=== PATIENT | female | born 1960 | race Caucasian/White ===

== ENCOUNTER 2016-08-30 15:53 | Outpatient (CLI) | payer OTHER ==
[2016-08-31] MEDS ORDERED: CYMBALTA30 MG PO (15:42)
[2016-08-31] MEDS ORDERED: OXYBUTYNIN CHLO15 MG PO (15:43)
[2016-08-31] MEDS ORDERED: LITHIUM CARBON600 MG PO (15:43)
[2016-08-31] MEDS ORDERED: PROTONIX40 MG PO (15:43)
[2016-08-31] MEDS ORDERED: LISINOPRIL10 MG PO (15:44)
[2016-08-31] MEDS ORDERED: LAMICTAL25 M1 PO (15:45)
[2016-08-31] MEDS ORDERED: ESTRACE1 MG PO (15:46)
[2016-08-31] MEDS ORDERED: ASPIRIN ADULT L81 MG PO (15:46)
== END 2016-08-30 23:00 ==
LOC: LAB SRH 15:53
DX: Z01.818 Encounter for other preprocedural examination (principal); Z01.812 Encounter for preprocedural laboratory examination
CPT/HCPCS: 90001; 90004; 90074; 90100; 90155; 91004; 94060; 95059; 95150

== ENCOUNTER 2016-09-05 10:21 | Inpatient (IN) | payer OTHER ==
--- NOTE | 2016-08-30 19:12 | HISTORY AND PHYSICAL ---
ADMITTED: 09/05/2016 CHIEF COMPLAINT: 1. Left knee pain HISTORY OF PRESENT ILLNESS: The patient has had chronic left knee pain which has not been resolved with conservative treatment and she is having clicking, catching, giving way of the knee, which has gotten progressively more severe and more painful as time has gone on, and she has not gotten better with any conservative treatment and will be admitted for knee replacement surgery then next week. She was informed today where the incision would be, how we go about doing the procedure, how the pieces are glued in place, the risk of blood clots, of infection with possible need for further surgery including removal of the prosthesis and further replacement of the knee at a later time, anesthesia complications, problems with stiffness and pain and then difficulty with healing , problems with wound healing all were explained to her today. She understands and accepts. MEDICAL/SURGICAL HISTORY: Past medical history is positive in that she suffers from hypertension, and she also has some problems with depression and she has bipolar disorder. She has had a previous TIA and also has had a recorded previous CVA. She suffers from insomnia and she has some GERD. She does have a history of prior surgery for an aneurysm as well as a right knee arthroscopy and meniscal resection and total abdominal hysterectomy. MEDICATIONS: 1. Pantoprazole 40 mg daily. 2. Oxybutynin 15 mg daily. 3. [place] carbonate 600 mg 3 times a day and then there is another listing that she takes 300 mg 3 times a day, so I am not sure which is corrected, the latest information I have from the computers that both are correct, I do not believe that is the case and so will have to discuss that further with her when she returns for her surgery. 4. She takes lisinopril 20 mg daily. 5. She takes lamotrigine 150 mg twice a day. 6. Estradiol 1 mg daily. 7. Duloxetine 30 mg on a daily basis. 8. Aspirin 81 mg per day. I did ask her not to take the aspirin. 9. She also has some Plavix, which I asked her not to take or to take any blood thinners for the surgery and then I explained to her after the surgery, she will be needing to take some aspirin 325 mg twice a day, which she agreed to do as well. ALLERGIES: 1. SOCIAL HISTORY: Positive in that she is a former smoker, but has not smoked for a long period of time. She drinks some occasional alcohol. She has not drank any at all recently. FAMILY HISTORY: She has a positive family history for a mother who suffered from hypertension and also had some problems with depression. REVIEW OF SYSTEMS: Today elicits no other problems other than the knee pain. PHYSICAL EXAMINATION: VITAL SIGNS: In the clinic today were height is 63 inches, weight 207 pounds, BMI is 36.67. Her blood pressure is 118/74, pulse is 76. HEENT: Shows the head to be normocephalic and atraumatic. Eyes are clear. Her hearing is grossly normal. Mouth and posterior oropharynx show that she has no lesions present. The tongue is midline. She has lost all of her maxillary teeth. NECK: Without jugular venous distention. CHEST: Symmetrical. HEART: Regular rate and rhythm without murmur. LUNGS: Clear to auscultation. ABDOMEN: Moderately obese. EXTREMITIES: Will refer you to my previous clinic notes. IMPRESSION: 1. Arthritis of the left knee. PLAN: Left knee replacement surgery as described above.
[~2016-09-05 10:21] MED LIST: ASPIRIN ADULT L81 MG PO; CYMBALTA30 MG PO; ESTRACE1 MG PO; LAMICTAL25 M1 PO; LISINOPRIL10 MG PO; LITHIUM CARBON600 MG PO; OXYBUTYNIN CHLO15 MG PO; PROTONIX40 MG PO
--- NOTE | 2016-09-05 11:28 | NUR ---
PREOP INSTRUCTIONS GIVEN TO PATIENT. QUESTIONS ANSWERED. PATIENT VERBALIZES UNDERSTANDING. CONSENT CONFIRMED. EXTREMITY MARKED BY PT. NO PREOP MEDICATIONS. STACY CESAR AND SCD ON. PATIENT RESTING COMFORTABLY. DAUGHTER IN THE ROOM. KB
--- NOTE | 2016-09-05 14:30 | NUR ---
PATIENT BROUGHT BACK UP TO THE FLOOR, AND SURGERY RESCHEDULED FOR TOMORROW. 18 GUAGE IV LEFT IN LEFT FOREARM. SLEEVE ON AND COBAN WRAPPED. INSTRUCTED ON NPO AFTER MIDNIGHT. DISCHARGED HOME WITH HER DAUGHTER. KB
--- NOTE | 2016-09-27 13:39 | PROGRESS NOTE ---
DATE OF SERVICE: 09/05/2016 ATTENDING PHYSICIAN/PROVIDER: SANYA LAROSE MD The patient came to have her knee replaced. Unfortunately, there were a couple of things that happened. We had several emergency surgeries to do, which got us backed up, and so it would have been difficult to do her surgery with the other emergencies, and then there was a problem also in sterilizing some of the equipment, so that we did not have all the appropriate equipment as well, and so she delayed until 09/06/2016. She did do her surgery on that date, but the surgery for 09/05/2016 was put off until the next day because of problems with the equipment and also because of the emergencies.
== END 2016-09-05 14:35 | disposition home or self-care (01) | DRG 554 ==
LOC: OB SRH 10:21
PROVIDERS: ADMIT Orthopaedic Surgery
DX: M17.12 Unilateral primary osteoarthritis, left knee (principal); Z53.8 Procedure and treatment not carried out for other reasons; I10 Essential (primary) hypertension; F32.9 Major depressive disorder, single episode, unspecified; Z86.73 Personal history of transient ischemic attack (TIA), and cerebral infarction without residual deficits; Z79.02 Long term (current) use of antithrombotics/antiplatelets
CPT/HCPCS: 87203; 90001; 90155; 91004; 91544; 91643; 95059

== ENCOUNTER 2016-09-06 08:47 | Inpatient (IN) | payer OTHER ==
[~2016-09-06] VITALS: Ht 160 cm; Wt 94.0 kg
[2016-09-06] VITALS (8 sets, daily range): BP systolic 105–133; BP diastolic 71–86
--- NOTE | 2016-09-06 14:27 | Postoperative Progress Note ---
Postop Progress Note Preoperate Diagnosis: Arthritis left knee Postoperative Diagnosis: Same Surgeon: Yuri King MD Anesthesia: General ETT Findings: Arthritis Procedure: Left TKA Complications? No Condition: Stable EBL: 150cc Blood Administered: 0 Specimen(s) removed? Yes Specimen removed/disposition: Bone and tissue left knee Grafts or Implants? Yes Graft/Implant type: Left TKA . (See nursing notes for details of grafts/implants)
--- NOTE | 2016-09-06 15:09 | DIAGNOSTIC IMAGING REPORT ---
PROCEDURE: XR KNEE 1 OR 2 VIEWS - left INDICATION: post-op left tka TECHNIQUE: Two-views COMPARISON: Bilateral knee films 1960 FINDINGS: The patient is status post a total knee replacement on the left The components are in good position. IMPRESSION: 1. Status post left total knee replacement
--- NOTE | 2016-09-06 15:48 | OPERATIVE REPORT ---
DATE OF SURGERY: 09/06/2016 SURGEON: SANYA LAROSE MD PREOPERATIVE DIAGNOSIS: 1. Arthritis, left knee POSTOPERATIVE DIAGNOSIS: 1. Arthritis of left knee PROCEDURE PERFORMED: 1. The operation proposed was left knee replacement, and the operation performed was left knee replacement SURGICAL TECHNIQUE: The patient was taken to the operating room. She was given a general anesthetic. A tourniquet was applied to the left thigh. The leg was prepped and draped in the usual sterile fashion. I made a longitudinal incision directly anteriorly, carried down through subcutaneous tissues. Standard medial parapatellar approach to the knee was performed, and the anterior cruciate ligament and infrapatellar fat pad were excised. The patella dislocated to the lateral side, and the guide from the [employer] custom made guides was seated down in place and pinned in place. We made the distal femoral cuts and then placing a block on the femur and making the cuts using the femoral cutting block, we cut out the anterior and posterior and chamfer cuts without difficulty. We then went to the tibia, subluxed the tibia forward. We were able to remove the menisci on both sides as well as the remaining soft tissue around the periphery that was impinging on the knee. Then, using the custom-made tibial cutting guide, we seated down in placed, confirmed with the guide zoraida, that it was in appropriate position and then made the tibial cut without any difficulty. Removed the cutting guide and placed the tibial trial baseplate in place. Pinned it down in place, made the drill hole for the stem and the cutout for the pins with the special stem osteotome from the [employer] set and then did trial reduction with the #3 femur and #2 tibial baseplate. You could see that she had good stability and good range of motion through the range of motion. I made the term cut in the central portion of the sulcus for the femoral component, seated the trial sulcus into place on the trial femur, and checked the patellar tracking, which was good. I then cut the patella, removing 9 mm of bone. We then made the drill holes for the 29 mm size, which was the appropriate size for her, and placed a 9 mm trial component and that rode and tracked very nicely. We then got the actual components minus the tibial insert, exsanguinate the limb , inflated the tourniquet to 350 mmHg, removed the trial components. We cleaned and dried the cut services of the bones. Methylmethacrylate was vacuum mixed, placed on the backside of the tibial component, down the hole for the tibial stem, on the backside of the tibia where we cut the surface, and then the tibial component was seated down in place. Extruded cement removed from around the margins. The patient then had more cement placed on the femoral component, on the cut surface of the femur, and we then seated the femur in place and removed the extruded cement from around the margins. We placed the just 9 mm trial insert in place, held the knee in extension while the cement hardened, and then vacuum mixed some more cement and placed it on the cut surface of the patella after cleaning and drying it thoroughly, and on the patellar component. Seated it in place, removed the extruded cement, left the clamp in place while the cement hardened. Once it did, we went and checked the patellar tracking. Once it was satisfactory and the patient had full range of motion and excellent stability with the 11 mm insert, we get the actual 11 mm insert. We seated it in place on the tibial baseplate, reduced the patella, and closed the parapatellar retinaculum using a combination of interrupted and running #2 nonabsorbable braided suture. The subcutaneous layer was closed with 2-0 Vicryl running suture, and the skin with subcuticular 3-0 Vicryl running suture. The patient, prior to the closure, did have injection of Dr. Valdivia's mix of local anesthetic, a preparation as provided by the pharmacy, in and around the knee joint. The patient, after completion of the surgery, had dressing with Xeroform, ABD pads, gauze. Sterile Webril loosely applied and an Dileep bandage loosely applied over the top of that. She did have full range of motion with flexion to at least 140 degrees and full extension easily possible, and good stability throughout.
[2016-09-07 02:12] VITALS: BP 110/69
[2016-09-07 06:50] VITALS: BP 104/69
--- NOTE | 2016-09-07 08:35 | Progress Note ---
Subjective General VSS Afebrile Hgb 9.9 WBC 19.6 NMV intact distally except still some subjective decreased sensation in the plantar heel area. Minimal pedal edema. Xray looks good. Needs PT, but there is none today. Hopefully tomorrow.
[2016-09-07 10:13] VITALS: BP 100/67
[2016-09-07 14:35] VITALS: BP 91/57
[2016-09-07 18:30] VITALS: BP 118/68
[2016-09-07 22:46] VITALS: BP 134/70
[2016-09-08 02:14] VITALS: BP 113/55
[2016-09-08 06:41] VITALS: BP 124/63
[2016-09-08] MEDS ORDERED: OXYCODONE IR PO (08:19)
--- NOTE | 2016-09-08 08:20 | Provider's Discharge Care Plan ---
Problem, Goal, Plan Problem List 1. Total knee replacement status
--- NOTE | 2016-09-08 08:20 | Provider's Discharge Care Plan ---
Problem, Goal, Plan Problem List 1. Total knee replacement status
--- NOTE | 2016-09-08 10:43 | PROGRESS NOTE ---
DATE OF SERVICE: 09/08/2016 ATTENDING PHYSICIAN/PROVIDER: Pascual Serrato MD BRIEF HISTORY: The patient is status post left total knee replacement by Dr. King and she is doing well. PHYSICAL EXAMINATION: On physical examination, her wound looks good. New dressing was applied. She is afebrile. LAB/IMAGING: Her labs are stable. IMPRESSION: 1. Status post left total knee replacement. PLAN: The patient is going to be discharged today.
== END 2016-09-08 11:05 | disposition home or self-care (01) | DRG 470 ==
LOC: SCU SRH 08:47 → ACUTE2 SRH 08:47 → U SRH 12:00 → ACUTE2 SRH 16:04
PROVIDERS: ADMIT Orthopaedic Surgery
PROC: 0SRD0J9 Replacement of Left Knee Joint with Synthetic Substitute, Cemented, Open Approach (ICD-10-PCS; principal; 2016-09-06 12:00)
DX: M17.12 Unilateral primary osteoarthritis, left knee (principal); I10 Essential (primary) hypertension; F31.9 Bipolar disorder, unspecified; F32.9 Major depressive disorder, single episode, unspecified; K21.9 Gastro-esophageal reflux disease without esophagitis

== ENCOUNTER 2016-10-04 09:53 | Outpatient (CLI) | payer OTHER ==
[~2016-10-04 09:53] MED LIST changes: +OXYCODONE IR PO
== END 2016-10-04 23:00 ==
LOC: LAB SRH 09:53 → LABWC S 09:53 → LAB SRH 23:00
DX: I10 Essential (primary) hypertension (principal); E21.2 Other hyperparathyroidism
CPT/HCPCS: 90047; 90074; 91096; 91171; 92690

== ENCOUNTER 2016-12-04 10:14 | Outpatient (CLI) | payer OTHER ==
--- NOTE | 2016-12-04 12:23 | DIAGNOSTIC IMAGING REPORT ---
PROCEDURE: MR LTD LOWER EXT JOINT-RIGHT INDICATION: OA RT KNEE [employer] protocol for preop knee replacement. TECHNIQUE: Limited MRI of the knee was performed with high-resolution PD sagittal images. In addition, AP radiographs of the lower extremity were obtained with scanogram markers. Diagnostic interpretation is not provided. IMPRESSION: 1. Preoperative [employer] protocol for knee prosthesis.
== END 2016-12-04 23:00 ==
LOC: MRI SRH 10:14
DX: M17.11 Unilateral primary osteoarthritis, right knee (principal)

== ENCOUNTER 2016-12-04 15:19 | Outpatient (CLI) | payer OTHER | END 2016-12-04 23:00 | LOC: LAB SRH 15:19 | DX: M17.11 Unilateral primary osteoarthritis, right knee (principal) | CPT/HCPCS: 92132 ==

== ENCOUNTER 2017-02-02 14:14 | Outpatient (CLI) | payer OTHER ==
--- NOTE | 2017-02-02 14:48 | DIAGNOSTIC IMAGING REPORT ---
PROCEDURE: XR CHEST 2 VIEW INDICATION: PRE OP TECHNIQUE: PA and lateral views. COMPARISON: Chest 08/02/2016 FINDINGS: Lungs are clear. Heart and mediastinum are normal. Thorax is normal. IMPRESSION: 1. Negative chest.
== END 2017-02-02 23:00 | disposition home or self-care (01) ==
LOC: RT SRH 14:14
DX: Z01.810 Encounter for preprocedural cardiovascular examination (principal); Z01.811 Encounter for preprocedural respiratory examination; Z01.812 Encounter for preprocedural laboratory examination
CPT/HCPCS: 90001; 90004; 90074; 90100; 90155; 91004; 91239; 91286; 94060; 95059; 95150

== ENCOUNTER 2017-02-07 15:58 | Inpatient (IN) | payer OTHER ==
--- NOTE | 2017-02-02 17:42 | HISTORY AND PHYSICAL ---
ADMITTED: 02/13/2017 CHIEF COMPLAINT: 1. Left knee pain HISTORY OF PRESENT ILLNESS: The patient has had arthritis actually of both knees and underwent a left knee replacement back in August, is doing well with that now. The right knee is still hurting and she would like to have it replaced and is being admitted for knee replacement surgery. MEDICAL/SURGICAL HISTORY: Past history: Having had a CVA, as well as hypertension. She is bipolar and suffers from depression. She has had problems with incontinence and she also had some TIAs and suffers from GERD and occasional insomnia as well. MEDICATIONS: Include: 1. Aspirin 81 mg a day. 2. Duloxetine 30 mg daily. 3. Estradiol 1 mg a day. 4. Lamotrigine 150 mg twice daily. 5. Lisinopril 20 mg a day. 6. [place] carbonate 600 mg 3 times a day. 7. Oxybutynin extended release 15 mg daily. 8. Pantoprazole 40 mg daily. ALLERGIES: 1. AMOXICILLIN. 2. CLINDAMYCIN. 3. LATEX. 4. PENICILLIN. 5. POTASSIUM CLAVULANATE. SOCIAL HISTORY: FAMILY HISTORY: Noncontributory. REVIEW OF SYSTEMS: She has not had any loss of consciousness or seizure disorder , problems with her hearing or vision. She does have problems with headaches. Cardiorespiratory: She has not had any chest pain, cough, congestion, fever, chills, or shortness of breath. Gastrointestinal: She has not had any recent nausea, vomiting, or diarrhea. Reports no blood in her stools. She has not had any dysuria or hematuria. Musculoskeletal: She has had the knee pain on the right. Knee is bothering her quite a bit. The left knee has largely healed. She is doing well after having had her knee replacement surgery there. PHYSICAL EXAMINATION: VITAL SIGNS: The patient's height is 63 inches, weight is 208, BMI of 37, blood pressure 110/73, pulse 96, respirations 18, temperature of 98.4. HEENT: Shows her head to be normocephalic and atraumatic. Her eyes are clear. Her extraocular muscles are intact. The hearing is grossly normal. There is no drainage from the ear canals. CHEST: Symmetrical. HEART: Regular rate and rhythm. No murmurs were heard. LUNGS: Clear to auscultation. ABDOMEN: Obese, but soft. There is no distention. EXTREMITIES: I refer you to my previous clinic notes, but she does have arthritic changes as noted on her MRI and x-rays of the knee and has some mild instability of grade 1 to maybe at worst grade 2 laxity of the medial collateral ligament. She has range of motion from 5-100 degrees of flexion. The patellar tracking is normal. There are no open wounds, erythema, warmth, drainage or other skin changes of the knee and there is just some mild edema that is present. Distally she has just trace dorsal pedal and posterior tibial pulses, but the toes are warm and pink and the capillary refilling is almost immediate. Her sensation is intact. She has active dorsiflexion, plantarflexion of the toes distally and no pedal edema. IMPRESSION: 1. Arthritis of the right knee. PLAN: Right knee replacement. The procedure has been explained to her, including the risk of infection, of problems with healing, of stiffness, of ongoing pain, of need for future revision surgery, of bleeding and blood clots and anesthesia complications. She understands and accepts and would like to proceed. We will do the surgery then on 02/14/2016 barring unforeseen complication or problem.
[~2017-02-07] VITALS: Ht 160 cm; Wt 94.3 kg
[2017-02-12] MEDS ORDERED: MAGNESIUM400 M1 PO (14:00)
[2017-02-12] MEDS ORDERED: MULTIPLE VITAMIN PO (14:00)
[2017-02-12] MEDS ORDERED: VITAMIN D-31000 UNIT PO (14:00)
[2017-02-12] MEDS ORDERED: VITAMIN B12100 MCG (14:01)
[2017-02-13 10:50] VITALS: BP 129/79
== END 2017-02-13 14:56 | disposition home or self-care (01) | DRG 554 ==
LOC: SCU SRH 02-13 10:48 → U SRH 02-13 13:00 → SCU SRH 02-13 14:56
PROVIDERS: ADMIT Orthopaedic Surgery
DX: M17.12 Unilateral primary osteoarthritis, left knee (principal); Z53.8 Procedure and treatment not carried out for other reasons; I10 Essential (primary) hypertension; F31.9 Bipolar disorder, unspecified; Z96.651 Presence of right artificial knee joint
CPT/HCPCS: 83456; 83526; 90074; 95059

== ENCOUNTER 2017-02-13 16:19 | Inpatient (IN) | payer OTHER ==
[~2017-02-13] VITALS: Ht 160 cm; Wt 94.9 kg
[~2017-02-13 16:19] MED LIST changes: +MAGNESIUM400 M1 PO; +MULTIPLE VITAMIN PO; +VITAMIN B12100 MCG; +VITAMIN D-31000 UNIT PO
[2017-02-14] VITALS (9 sets, daily range): BP systolic 115–142; BP diastolic 62–88
--- NOTE | 2017-02-14 07:02 | NUR ---
PT HERE FOR SURGERY RESCHEDULE FROM YESTERDAY PT MARKED SITE CONFIRMED PROCEDURE VERIFIED SIGNATURE STATED SHE BECAME RED AND ITCHY AFTER MED YESTERDAY STACY CESAR ON
--- NOTE | 2017-02-14 07:05 | NUR ---
FIRST ATTEMPT IV RIGHT FOREARM UNSUCCESSFUL WITH 18 GUAGE. GUAZE DRESSING APPLIED
--- NOTE | 2017-02-14 10:07 | NUR ---
rec'd from OR; SPONT RESP. SUPINE WITH RLE ELEVATED ON PILLOW AND ICED, CMS=GOOD. ORAL AIRWAY DC'D.
--- NOTE | 2017-02-14 10:15 | Postoperative Progress Note ---
Postop Progress Note Preoperate Diagnosis: right knee arthritis Postoperative Diagnosis: same Surgeon: Yuri King MD Anesthesia: General ETT Findings: Right knee arthritis Procedure: Right knee replacement. The patient was taken to the operating room where she was given general anesthetic. She return to apply to the right thigh and the leg was prepped and draped in the sterile fashion. A longitudinal incision was made anteriorly over the knee and carried down through the subcutaneous tissue. The knee was opened using a standard medial parapatellar approach. And the patella dislocated to the lateral side and the anterior horns of the menisci and anterior cruciate ligament were removed as well as a major portion of the anterior fat pad. Cutting block was placed on the distal aspect of the femur and pinned in place within the distal cut was made using an oscillating saw. The anterior and posterior chamfer cuts were made using a #3 cutting block. Then the tibia was subluxed anteriorly and the tibial cut was made using the supplied the [employer] cutting block. The posterior horns of the menisci were removed and then the tibial baseplate was pinned in position and the drill hole made for the stem cut out for the fins using supplied special punch. A trial reduction was performed using a #3 femur #2 tibial baseplate and the 9 mm insert and the patient had a stable knee with full range of motion easily possible and no problems with patellar tracking. The trial components were removed after drilling for the femoral lugs and the patella was cut resecting 10 mm of bone. The patella was sized and the drill holes made for the pegs on the patella and then undercut slightly with a currette. The limb was exsanguinated and the tourniquet inflated to 3 50 mmHg area and the bone surfaces were cleaned with pulse lavage unit and dried thoroughly. Methylmethacrylate cement was vacuum mixed and applied to the cut surface of the tibia hole for the tibial stem and on the backside of the tibial component. It was inserted into place and seated down with gentle taps of the mallet and extruded cement removed from around the margins. More cement was placed on the cut surface of the femur on the backside of the femoral component and it was seated into place and extruded cement removed from around the margins. A 9 mm trial insert was placed on the tibia and the knee was put into the central cement hardened. Once that was accomplished and before the cement hardened and put more cement on the backside of the patellar component and down the holes for the for the patella and then placed the patellar component in place and clamped it with a clamp and removed the extruded cement from around the margins. Once the cement and thoroughly hardened and we checked again the patellar tracking and stability of the knee and all of which were excellent. The trial tibial insert was removed and the 9 mm insert was seated into place the patella was relocated and the parapatellar retinaculum closed with combination of running and interrupted [id number] # 2 nonabsorbable braided suture. The subcutaneous layer was closed with 2-0 [place] running suture and the skin with subcuticular 3-0 Polysorb suture. Before the closure she was injected with a combination of saline and Exparel. The knee was dressed with Xeroform gauze and ABD pads and wrapped with sterile Webril and an Dileep bandage. She was awakened and taken to recovery room in stable condition. Complications? No Condition: Stable EBL: 100 cc Blood Administered: 0 Specimen(s) removed? Yes Specimen removed/disposition: Bone and tissue right knee Grafts or Implants? Yes Graft/Implant type: Right knee replacement . (See nursing notes for details of grafts/implants)
--- NOTE | 2017-02-14 10:26 | NUR ---
PT SLEEPING; WHEN I WAKE HER SHE REPORTS MOD. OP SITE PAIN. MEDS GIVEN AND PT GOES BACK TO SLEEP.
--- NOTE | 2017-02-14 10:32 | NUR ---
RT LOWER LEG STACY HOSE APPLIED AND LIP CARE.
--- NOTE | 2017-02-14 10:47 | NUR ---
XRAYS TAKEN; TOLERATED WELL. PT REPORTS OP SITE PAIN; INSTRUCTED TO DB&C DUE TO DECREASED BREATHING RATE. CO-OP
--- NOTE | 2017-02-14 10:51 | NUR ---
GLASSES RETURNED TO PT. AWAKE AND TALKING ABOUT HER DAUGHTER.
--- NOTE | 2017-02-14 11:13 | DIAGNOSTIC IMAGING REPORT ---
PROCEDURE: XR KNEE 1 OR 2 VIEWS - RIGHT INDICATION: POST-OP TOTAL KNEE TECHNIQUE: AP and lateral views. COMPARISON: Right knee x-ray 06/09/2016. FINDINGS: Interval right knee arthroplasty with satisfactory alignment and positioning. Postsurgical changes of the soft tissues. IMPRESSION: 1. Total right knee arthroplasty with normal postoperative appearance
--- NOTE | 2017-02-14 11:50 | NUR ---
AT 1110, RECEIVED PT FROM PACU. AWAKE, ALERT, ORIENTED. ICE CHIPS GIVEN. AT 1150. PT IS STILL AWAK, ALERT, ORIENTED, COHERENT, COOPERATIVE. V/S TAKEN AND RECORDED. ASSESSEMENT DONE. PT COMPLAINT OF RT KNEE PAIN. DENIES CHEST PAIN, N/S VOMITING AT THIS TIME. PT TOLERATED HER ICE CHIPS, ICE WATER, POPSICLE WELL. INFORMED PT THAT I WILL GIVE HER PAIN PILLS AFTER SHE HAS EATEN. PT UNDERSTOOD. NEEDS ATTENDED.
--- NOTE | 2017-02-14 17:58 | NUR ---
Offered to discuss patient's medication regimen with her. She did pleasantly decline.
--- NOTE | 2017-02-15 00:04 | NUR ---
A&OX3, LS CTA AND BT ACTIVE. C/O PAIN IN RIGHT KNEE AT 5/10 THROUGHOUT MOST OF SHIFT. PAIN MEDS GIVEN, PAIN CURRENTLY 2/10. NO NAUSEA. AMBULATING W/ SBA USING FWW TO BR. VSS. RIGHT KNEE BANDAGE C/D/I W/ ICE ON OCCASIONALLY. RESTING W/ CALL LIGHT IN REACH.
[2017-02-15 03:02] VITALS: BP 104/64
--- NOTE | 2017-02-15 03:23 | NUR ---
PT A&O X3, ABLE TO MAKE NEEDS KNOWN, PLEASANT AND COOPERATIVE. LS CTA, ON RA. BT PRESENT IN ALL QUADS, STATES SHE IS PASSING GAS BUT HAS NOT HAD BM SINCE OPERATION. DENIES NUMBNESS/TINGLING IN RLE, PEDAL PULSES PALPABLE BILATERALLY; COMPRESSION HOSE ON BOTH LEGS, SCD ON LLE. GABRIELA WRAP OVER R KNEE DRESSING IN PLACE, CDI. NO SIGNIFICANT PAIN IN SURGICAL SITE WITH PALPATION. AMBULATES TO BATHROOM USING FWW, PLACING SOME WEIGHT ON RLE WITHOUT DISCOMFORT. C/O SEVERE PAIN IN R KNEE, MANAGED WITHIN TOLERABLE LIMITS WITH PRN OXYCODONE AND ATIVAN. VSS.
[2017-02-15 06:14] VITALS: BP 103/69
--- NOTE | 2017-02-15 07:57 | Progress Note ---
Subjective General VSS Afeb WBC 14.9 Hgb 10.1 FBS 115 Calcium 8.3 C/O pain. No other c/o Doing well getting out of bed and going to the BR with a walker. PT today.
[2017-02-15] MEDS ORDERED: OXAYDO5 MG PO (08:03)
[2017-02-15] MEDS ORDERED: ASPIRIN325 MG PO (08:04)
--- NOTE | 2017-02-15 08:05 | Provider's Discharge Care Plan ---
Problem, Goal, Plan Problem List 1. Total knee replacement status
--- NOTE | 2017-02-15 08:05 | Provider's Discharge Care Plan ---
Problem, Goal, Plan Problem List 1. Total knee replacement status
[2017-02-15 11:01] VITALS: BP 113/72
--- NOTE | 2017-02-15 12:42 | NUR ---
CALL TO DR. LAROSE, PER MD PATIENT CAN GO HOME. PATIENT REQUESTING TO GO HOME. PATIENT DID VERY WELL WITH PT. PT. ABLE TO AMBULATE WELL AND STATES THAT HER PAIN IS WELL CONTROLLED. GIVEN SIGNED RX AND ALL PERSONAL BELONGINGS. IV DC'D TO R HAND CATHETER TIP IS INTACT, AND DAMARI APPLIED PRESSURE, EDUCATED PATIENT ON BLOOD THINNERS. ESCORTED OUT IN W/C TO GO HOME WITH DAUGHTER BY DIGESTER OPERATOR AT 1240
== END 2017-02-15 12:40 | disposition home or self-care (01) | DRG 470 ==
LOC: SCU SRH 02-14 06:04 → ACUTE2 SRH 02-14 06:04 → U SRH 02-14 07:30 → ACUTE2 SRH 02-14 11:10
PROVIDERS: ADMIT Orthopaedic Surgery
PROC: 0SRC0J9 Replacement of Right Knee Joint with Synthetic Substitute, Cemented, Open Approach (ICD-10-PCS; principal; 2017-02-14 07:30)
DX: M17.11 Unilateral primary osteoarthritis, right knee (principal); Z96.652 Presence of left artificial knee joint; I10 Essential (primary) hypertension; K21.9 Gastro-esophageal reflux disease without esophagitis; F31.9 Bipolar disorder, unspecified; Z86.73 Personal history of transient ischemic attack (TIA), and cerebral infarction without residual deficits; Z79.82 Long term (current) use of aspirin